=== PATIENT | male | born 1950 | race Two or more races ===

== ENCOUNTER 2023-11-05 15:34 | Inpatient (IN) | payer MEDICAID, OTHER ==
[~2023-11-05] VITALS: Ht 170.2 cm; Wt 79.4 kg
[2023-11-05 16:56] LABS: Basophils # (auto) 0.1 10 ^3/uL (0-0.2); Eosinophils # (auto) 0.1 10 ^3/uL (0-0.8); Hematocrit 24.2 % (41.0-53.0); Hemoglobin 7.1 g/dL (13.5-17.5); Mean Corpuscular Hemoglobin 17.3 pg (28.0-32.0); Neutrophils # (auto) 2.7 10 ^3/uL (1.6-8.6); Nucleated Red Blood Cells % 0.1 %
[2023-11-05 16:57] LABS: Basophils % (auto) 1.9 % (0.0-2.0); Eosinophils % (auto) 1.9 % (0.0-7.0); Lymphocytes # (auto) 1.1 10 ^3/uL (0.4-5.4); Lymphocytes % (auto) 23.4 % (10.0-50.0); Mean Corpuscular Hgb Conc. 29.3 g/dL (32.0-36.0); Mean Corpuscular Volume 58.9 fL (80.0-100.0); Monocytes # (auto) 0.6 10 ^3/uL (0-1.3); Monocytes % (auto) 12.6 % (0.0-12.0); Neutrophils % (auto) 60.2 % (37.0-80.0); Red Blood Cells 4.11 10^6/uL (4.5-5.90); White Blood Cell 4.5 10^3/uL (4.4-10.8)
[2023-11-05 16:59] LABS: Red Cell Distribution Width 22.4 % (11.8-14.3)
[2023-11-05 17:08] LABS: Chloride 108 mmol/L (98-107); Potassium 3.9 mmol/L (3.5-5.1); Sodium 138 mmol/L (136-145)
[2023-11-05 17:09] LABS: Anion Gap 4 (5-15); Calcium 9.1 mg/dL (8.7-10.4); Carbon Dioxide 26 mmol/L (20-30)
[2023-11-05 17:14] LABS: BUN/Creatinine Ratio 20.5 (10.0-20.0); Blood Urea Nitrogen 16 mg/dL (9-23); Glucose 88 mg/dL (74-106)
[2023-11-05 17:25] LABS: Anisocytosis Moderate
[2023-11-05 17:26] LABS: Hypochromia Moderate; Large Platelets FEW; Ovalocytes FEW; Platelet Estimate Adequa
[2023-11-05 18:31] LABS: Urine Bacteria None Seen /hpf (None Seen)
[2023-11-05 18:39] LABS: Urine Blood Negative /uL (Negative); Urine Clarity Clear (Clear); Urine Color Light-Yellow (Yellow); Urine Mucus FEW (None Seen); Urine Protein, UAD Negative (Negative); Urine Specific Gravity 1.017 (1.001-1.035); Urine Urobilinogen Normal (Negative); Urine WBC <1 /hpf (0 - 3)
[2023-11-05] MEDS ORDERED: ONDANSETRON HCL 4 MG/2 ML VIAL IV PRN (20:00)
[2023-11-06] VITALS (11 sets, daily range): BP systolic 120–174; BP diastolic 57–79; PULSE 58–65; RESP 11–18; TEMP 97.6–98.4; O2SAT 94–98
[2023-11-06 05:11] LABS: Basophils # (auto) 0.1 10 ^3/uL (0-0.2); Basophils % (auto) 1.5 % (0.0-2.0); Eosinophils # (auto) 0.2 10 ^3/uL (0-0.8); Eosinophils % (auto) 4.9 % (0.0-7.0); Hematocrit 25.7 % (41.0-53.0); Hemoglobin 7.5 g/dL (13.5-17.5); Lymphocytes # (auto) 1.2 10 ^3/uL (0.4-5.4); Lymphocytes % (auto) 28.9 % (10.0-50.0); Mean Corpuscular Hemoglobin 18.1 pg (28.0-32.0); Mean Corpuscular Hgb Conc. 29.2 g/dL (32.0-36.0); Monocytes # (auto) 0.5 10 ^3/uL (0-1.3); Monocytes % (auto) 12.9 % (0.0-12.0); Neutrophils # (auto) 2.1 10 ^3/uL (1.6-8.6); Neutrophils % (auto) 51.8 % (37.0-80.0); Nucleated Red Blood Cells % 0.1 %; Red Blood Cells 4.15 10^6/uL (4.5-5.90); Red Cell Distribution Width 24.7 % (11.8-14.3); White Blood Cell 4.2 10^3/uL (4.4-10.8)
[2023-11-06 05:22] LABS: Alkaline Phosphatase 85 U/L (46-116); Anion Gap 3 (5-15); Aspartate Aminotransferase < 8 U/L (13-40); BUN/Creatinine Ratio 18.6 (10.0-20.0); Blood Urea Nitrogen 13 mg/dL (9-23); Calcium 8.7 mg/dL (8.5-10.1); Carbon Dioxide 26 mmol/L (20-30); Chloride 111 mmol/L (98-107); Glucose 91 mg/dL (74-106); Potassium 3.9 mmol/L (3.5-5.1); Sodium 140 mmol/L (136-145)
[2023-11-06 05:23] LABS: Alanine Aminotransferase 9 U/L (7-40); Albumin 3.8 g/dL (3.2-4.8); Bilirubin, Total 1.1 mg/dL (0.2-1.0); Total Protein 6.6 g/dL (5.7-8.2)
[2023-11-06 05:37] LABS: Anisocytosis Moderate; Hypochromia Marked; Platelet Estimate Adequate
[2023-11-06 05:38] LABS: Ovalocytes FEW
[2023-11-06] MEDS: PANTOPRAZOLE 40 MG/10 ML VIAL INJ IV SCH (10:07)
[2023-11-06 11:07] LABS: % Iron Saturation 2.9 % (20-55)
[2023-11-06 12:21] LABS: Folate (Folic Acid) 15.44 ng/mL (>5.38)
[2023-11-06 12:22] LABS: Ferritin 3.3 ng/mL (22-322)
[2023-11-06] MEDS: SODIUM FERR GLUC 62.5MG/5ML 110 ML IV SCH (12:53)
[2023-11-06] MEDS: LACTULOSE 20Gm/30ML SOLN PO ONE (13:14)
[2023-11-06 14:26] LABS: Hepatitis C Antibody Negative (Negative)
[2023-11-06 14:39] LABS: Hepatitis B Surface Antigen Negative (Negative)
[2023-11-06] MEDS ORDERED: hydrALAZINE HCL 20 MG/ML VL IV PRN (18:00)
[2023-11-07] VITALS (8 sets, daily range): BP systolic 111–148; BP diastolic 51–78; PULSE 54–75; RESP 16–18; TEMP 97.4–98.4; O2SAT 95–98
[2023-11-07 10:04] LABS: Basophils # (auto) 0.1 10 ^3/uL (0-0.2); Eosinophils # (auto) 0.2 10 ^3/uL (0-0.8); Hematocrit 27.1 % (41.0-53.0); Lymphocytes # (auto) 0.9 10 ^3/uL (0.4-5.4); Mean Corpuscular Hemoglobin 18.3 pg (28.0-32.0); Monocytes # (auto) 0.4 10 ^3/uL (0-1.3); Neutrophils # (auto) 2.2 10 ^3/uL (1.6-8.6); Nucleated Red Blood Cells % 0.2 %; Red Blood Cells 4.36 10^6/uL (4.5-5.90)
[2023-11-07 10:06] LABS: Basophils % (auto) 1.4 % (0.0-2.0); Eosinophils % (auto) 4.2 % (0.0-7.0); Mean Corpuscular Hgb Conc. 29.4 g/dL (32.0-36.0); Mean Corpuscular Volume 62.2 fL (80.0-100.0); Monocytes % (auto) 11.9 % (0.0-12.0); Neutrophils % (auto) 58.5 % (37.0-80.0); Red Cell Distribution Width 24.7 % (11.8-14.3); White Blood Cell 3.7 10^3/uL (4.4-10.8)
[2023-11-07 10:26] LABS: Alanine Aminotransferase 10 U/L (7-40); Albumin 3.9 g/dL (3.2-4.8); Alkaline Phosphatase 89 U/L (46-116); Anion Gap 5 (5-15); Aspartate Aminotransferase < 8 U/L (13-40); BUN/Creatinine Ratio 13.7 (10.0-20.0); Blood Urea Nitrogen 10 mg/dL (9-23); Carbon Dioxide 26 mmol/L (20-30); Chloride 107 mmol/L (98-107); Glucose 115 mg/dL (74-106); Potassium 3.9 mmol/L (3.5-5.1); Sodium 138 mmol/L (136-145)
[2023-11-07 11:10] LABS: Hypochromia Moderate; Ovalocytes FEW; Platelet Estimate Adequate
[2023-11-07] MEDS: CYANOCOBALAMIN 500 MCG TAB PO ONE (14:35)
[2023-11-08 01:00] VITALS: BP 130/55; PULSE 61; RESP 17; TEMP 98; O2SAT 97
[2023-11-08 05:00] VITALS: BP 100/47; PULSE 58; RESP 18; TEMP 98.4; O2SAT 97
[2023-11-08 06:30] LABS: Basophils # (auto) 0.1 10 ^3/uL (0-0.2); Mean Corpuscular Hemoglobin 18.2 pg (28.0-32.0); Monocytes # (auto) 0.6 10 ^3/uL (0-1.3); Neutrophils # (auto) 2.4 10 ^3/uL (1.6-8.6); Nucleated Red Blood Cells % 0.1 %; White Blood Cell 4.6 10^3/uL (4.4-10.8)
[2023-11-08 06:33] LABS: Basophils % (auto) 1.7 % (0.0-2.0); Eosinophils # (auto) 0.3 10 ^3/uL (0-0.8); Eosinophils % (auto) 5.5 % (0.0-7.0); Hematocrit 27.2 % (41.0-53.0); Lymphocytes # (auto) 1.2 10 ^3/uL (0.4-5.4); Lymphocytes % (auto) 26.7 % (10.0-50.0); Mean Corpuscular Hgb Conc. 29.5 g/dL (32.0-36.0); Mean Corpuscular Volume 61.7 fL (80.0-100.0); Monocytes % (auto) 13.7 % (0.0-12.0); Neutrophils % (auto) 52.4 % (37.0-80.0)
[2023-11-08 06:45] LABS: Albumin 3.8 g/dL (3.2-4.8); Alkaline Phosphatase 83 U/L (46-116); Anion Gap 8 (5-15); Aspartate Aminotransferase < 8 U/L (13-40); BUN/Creatinine Ratio 16.9 (10.0-20.0); Bilirubin, Total 0.8 mg/dL (0.2-1.0); Blood Urea Nitrogen 13 mg/dL (9-23); Calcium 9.2 mg/dL (8.7-10.4); Carbon Dioxide 24 mmol/L (20-30); Chloride 108 mmol/L (98-107); Glucose 77 mg/dL (74-106); Potassium 3.9 mmol/L (3.5-5.1); Sodium 140 mmol/L (136-145)
[2023-11-08 06:46] LABS: Total Protein 6.9 g/dL (5.7-8.2)
[2023-11-08 07:05] LABS: Alanine Aminotransferase < 9 U/L (7-40)
[2023-11-08 08:00] VITALS: PULSE 57; RESP 20; O2SAT 97
[2023-11-08] MEDS ORDERED: OMNIPAQUE 12mg/ml 500ml ORAL SOLUTION PO ONE (08:08)
[2023-11-08 08:35] LABS: Anisocytosis Moderate; Platelet Estimate Adequate
[2023-11-08 08:36] LABS: Hypochromia Marked
[2023-11-08 09:00] VITALS: BP 137/70; PULSE 57; RESP 20; TEMP 98; O2SAT 97
[2023-11-08] MEDS: CYANOCOBALAMIN 500 MCG TAB PO SCH (10:00)
[2023-11-08 10:07] LABS: % Iron Saturation 28.8 % (20-55)
[2023-11-08] MEDS ORDERED: IOHEXOL 300 MG/ML 100ML BOTTLE IJ ONE (10:12)
[2023-11-08] MEDS ORDERED: FER325T PO (11:42)
[2023-11-08 13:00] VITALS: BP 137/76; PULSE 56; RESP 18; TEMP 97.7; O2SAT 98
[2023-11-08 14:18] VITALS: BP 137/76; PULSE 56; RESP 18; TEMP 97.7; O2SAT 98
== END 2023-11-08 15:00 | disposition home or self-care (01) | DRG 663 ==
LOC: ER 15:34 → TELE 20:04 → TELE-E-ADS 11-06 12:01 → TELE-WESTW 11-06 17:38 → WEST WING 11-07 00:15
PROVIDERS: ADMIT Internal Medicine; ATTEND Internal Medicine
PROC: 30233N1 Transfusion of Nonautologous Red Blood Cells into Peripheral Vein, Percutaneous Approach (ICD-10-PCS; principal; 2023-11-06)
DX: D50.9 Iron deficiency anemia, unspecified (principal); M25.562 Pain in left knee; Z79.899 Other long term (current) drug therapy; W18.39XA Other fall on same level, initial encounter; Y93.89 Activity, other specified; Y92.89 Other specified places as the place of occurrence of the external cause; Y99.8 Other external cause status
CPT/HCPCS: 36415; 36430; 70450; 73560; 74177; 80048; 80053; 81001; 82270; 82607; 82728; 82746; 83540; 83550; 83615; 85025; 85045; 86803; 86850; 86900; 86901; 86920; 87340; 93005; 93306; 93886; 96374; C9113; G0378